=== PATIENT | male | born 1965 | race Caucasian/White ===

== ENCOUNTER → 2022-05-23 08:35 | Outpatient (BNVA) | payer SELFPAY | PROVIDERS: Visit Provider Physician Assistant Medical | DX: Z02.79 Encounter for issue of other medical certificate (principal) ==

== ENCOUNTER 2022-07-21 07:59 | Outpatient (REF) | payer SELFPAY ==
[2022-07-29 12:49] LABS: Perfluorobutanesulfonic Acid None Detected; Perfluoroheptanoic Acid None Detected; Perfluorohexanesulfonic Acid 6.6 ng/mL; Perfluorononanoic Acid 0.61 ng/mL; Perfluorooctanesulfonic Acid 9.7 ng/mL; Perfluorooctanoic Acid 1.5 ng/mL
== END 2022-07-21 08:00 | disposition home or self-care (01) ==
LOC: HO.LAB 07:59
PROVIDERS: Visit Provider Physician Assistant Medical
DX: Z57.9 Occupational exposure to unspecified risk factor (principal)
CPT/HCPCS: 36415; 82542